=== PATIENT | female | born 1950 | race Caucasian/White ===

== ENCOUNTER 2017-03-09 13:48 | Emergency (ER) | payer MEDICARE, SELFPAY ==
[2017-03-09 14:28] VITALS: TEMP 97.5
[2017-03-09] MEDS ORDERED: methylPREDNISolone SODIUM SUC 125 MG/2 ML VIAL IM ONE (14:34)
--- NOTE | 2017-03-09 14:36 | ED.PDOC ---
History of Present Illness - General Chief Complaint: ENT Problem Stated Complaint: cold like symptoms Time Seen by Provider: 03/09/17 14:07 Source: patient, RN notes reviewed, Vital Signs reviewed Exam Limitations: no limitations - History of Present Illness Initial Comments: Patient comes in with allergy symptoms for the past 10 days. Watery eyes, nasal congestion, runny nose and mild cough. This happens about every year. She reports if she does not get it controlled then it will turn into pneumonia. She has been using OTC allergy medications w/o relief. Timing/Duration: gradual Severity: moderate EENT Location: eye (R), eye (L), nose Prearrival Treatment: over the counter meds Improving Factors: nothing Worsening Factors: nothing Associated Symptoms: cough, nasal congestion/drainage Allergies/Adverse Reactions: Allergies NO KNOWN ALLERGY Allergy (Verified 03/09/17 14:28) Home Medications: Ambulatory Orders Azithromycin [Zithromax Z-Maikol] 1 ea PO DAILY #1 pack 03/09/17 Review of Systems - Review of Systems Constitutional: States: no symptoms reported. Denies: chills, diaphoresis, fever, malaise EENTM: States: see HPI, tearing, nose congestion Respiratory: States: cough. Denies: short of breath, wheezing Cardiology: States: no symptoms reported Gastrointestinal/Abdominal: States: no symptoms reported Musculoskeletal: States: no symptoms reported Skin: States: no symptoms reported Neurological: States: headache - mild All other Systems: No Change from Baseline Past Medical History (General) - Patient Medical History Hx Seizures: No Hx Stroke: No Hx Asthma: No Hx of COPD: No Hx Cardiac Disorders: No Hx Congestive Heart Failure: No Hx Pacemaker: No Hx Hypertension: No Hx Diabetes: No Hx MRSA: No Surgical History: Hysterectomy, other - Vaccination History Hx Influenza Vaccination: No Hx Pneumococcal Vaccination: No - Social History Hx Tobacco Use: No Hx Alcohol Use: No Hx Substance Use: No Hx Substance Use Treatment: No Hx Physical Abuse: No Hx Emotional Abuse: No - Activities of Daily Living Hospice Agency (if applicable):: None Family Medical History - Family History Mother Family History: Unknown Physical Exam - Physical Exam General Appearance: Alert, Comfortable, No apparent distress, Well Developed, Well Groomed, Well Hydrated, Well Nourished Eye Exam: bilateral normal Ear Exam: bilateral ear: auricle normal, canal normal, TM normal Nasal Exam: discharge - Rhinorrhea, sinus tenderness - Mild, maxillary Throat Exam: normal mouth inspection, pharynx normal Neck: non-tender, full range of motion, supple, normal inspection Cardiovascular/Respiratory: regular rate, rhythm, no M/R/G, normal breath sounds , no respiratory distress Neurologic: alert, normal mood/affect, oriented x 3 Skin Exam: normal color, warm/dry Comments: Vital Signs 03/09/17 14:10 Temperature 97.5 F L Pulse Rate [ 88 pulse ox] Respiratory 20 Rate Blood Pressure 154/91 [left arm] O2 Sat by Pulse 95 Oximetry Progress - Progress Progress: 03/09/17 14:37 Will given Solu-Medrol 125mg IM Will send home with Rx for antibiotics to take only if symptoms worsening or not improving. Departure - Departure Clinical Impression: Allergic rhinitis due to allergen Qualifiers: Chronicity: acute Allergic rhinitis trigger: unspecified Allergic rhinitis seasonality: seasonal Qualified Code(s): J30.2 - Other seasonal allergic rhinitis Time of Disposition: 14:38 Disposition: Discharge to Home or Self Care Condition: Good Departure Forms: ED Discharge - Pt. Copy, Patient Portal Self Enrollment Instructions: DI for Allergic Rhinitis Diet: resume usual diet Activity: increase activity as tolerated Prescriptions: Azithromycin [Zithromax Z-Maikol] 1 ea PO DAILY #1 pack Home Medications: Ambulatory Orders Azithromycin [Zithromax Z-Maikol] 1 ea PO DAILY #1 pack 03/09/17 Additional Instructions: Continue allergy medications as needed.
[2017-03-09 15:25] VITALS: BP 156/90; O2SAT 94
== END 2017-03-09 15:23 | disposition home or self-care (01) ==
LOC: ER 13:48
DX: J30.2 Other seasonal allergic rhinitis (principal)

== ENCOUNTER 2017-06-30 14:03 | Emergency (ER) | payer MEDICARE ==
[2017-06-30] MEDS ORDERED: IPRATROPIUM/ALBUTEROL 3 ML VIAL NEB ONE ×2 (15:23→16:32)
--- NOTE | 2017-06-30 16:18 | RAD ---
EXAM: Chest,1 View CLINICAL INDICATION: 66-year-old female with cough and fever. TECHNIQUE: Single view, AP portable chest was obtained. COMPARISON: 10/26/2013 single view chest. FINDINGS: Stable cardiac and mediastinal silhouette. Heart size is normal. Round opacity with central lucency overlying the projection of the cardiac silhouette suggestive of hiatal hernia. Relatively low lung volumes with LEFT basilar patchy opacification finding which may be secondary to subsegmental atelectasis versus consolidation. No gross pneumothoraces or large pleural effusion. The visualized bones reveal degenerative change. IMPRESSION: 1. Relatively low lung volumes with slight basilar linear opacification on the RIGHT suggesting subsegmental atelectasis versus consolidation. Aspirate may be considered in the differential. Please correlate with patient clinical findings and follow-up for resolution. 2. Small central air-filled lucency overlying the cardiac silhouette suggestive of small hiatal hernia. Lateral chest radiograph or CT chest may be considered for confirmation. Electronically signed by: Fadia Cota MD 06/30/2017 4:17 PM [facility]
--- NOTE | 2017-06-30 16:33 | ED.PDOC ---
History of Present Illness - General Chief Complaint: Fever Stated Complaint: Fever, cough, nasal congestion Time Seen by Provider: 06/30/17 15:23 Source: patient - History of Present Illness Initial Comments: PT REPORTS TO THE ED WITH COMPLAINTS OF COUGH AND FEVER X 4 DAYS. Timing/Duration: getting worse Severity: moderate Improving Factors: nothing Worsening Factors: nothing Associated Symptoms: cough, fever/chills, loss of appetite, malaise Allergies/Adverse Reactions: Allergies NO KNOWN ALLERGY Allergy (Verified 03/09/17 14:28) Home Medications: Ambulatory Orders Azithromycin [Zithromax Z-Maikol] 1 ea PO DAILY #1 pack 03/09/17 levoFLOXacin [Levaquin] 500 mg PO DAILY 10 Days #10 tab 06/30/17 Review of Systems - Review of Systems Constitutional: States: chills, fever, malaise EENTM: States: nose congestion, throat pain Respiratory: States: cough Cardiology: Denies: chest pain, palpitations Gastrointestinal/Abdominal: Denies: abdominal pain, nausea, vomiting Past Medical History (General) - Patient Medical History Hx Seizures: No Hx Stroke: No Hx Asthma: No Hx of COPD: No Hx Cardiac Disorders: No Hx Congestive Heart Failure: No Hx Pacemaker: No Hx Hypertension: No Hx Diabetes: No Hx MRSA: No Surgical History: Hysterectomy - Vaccination History Hx Influenza Vaccination: No Hx Pneumococcal Vaccination: No - Social History Hx Tobacco Use: No Hx Alcohol Use: No Hx Substance Use: No Hx Substance Use Treatment: No Hx Physical Abuse: No Hx Emotional Abuse: No Family Medical History - Family History Mother Family History: No Known Living Status: Physical Exam - Physical Exam General Appearance: Alert, Comfortable, No apparent distress, Well Developed, Well Groomed, Well Hydrated Ears, Nose, Throat: hearing grossly normal Neck: non-tender, full range of motion, supple Respiratory: lungs clear, normal breath sounds, no respiratory distress, no accessory muscle use Cardiovascular/Chest: regular rate, rhythm, no edema, no murmur Gastrointestinal/Abdominal: non tender, soft Extremity: non-tender, normal inspection Neurologic: alert, normal mood/affect, oriented x 3 Skin Exam: normal color, warm/dry Progress - Progress Progress: 06/30/17 16:53 PT REPORTS IMPROVEMENT IN SYMPTOMS AFTER DUONEB. CXR FINDINGS DISCUSSED. - EKG/XRAY/CT XRAY: chest - LLL OPACITY PER RAD Departure - Departure Clinical Impression: Pneumonia, Fever in adult Time of Disposition: 16:54 Disposition: Discharge to Home or Self Care Condition: Good Departure Forms: ED Discharge - Pt. Copy, Patient Portal Self Enrollment Instructions: DI for Pneumonia -- Adult Referrals: [facility] [Provider Group] - 1-5 Days Prescriptions: levoFLOXacin [Levaquin] 500 mg PO DAILY 10 Days #10 tab Home Medications: Ambulatory Orders Azithromycin [Zithromax Z-Maikol] 1 ea PO DAILY #1 pack 03/09/17 levoFLOXacin [Levaquin] 500 mg PO DAILY 10 Days #10 tab 06/30/17
[2017-06-30] MEDS ORDERED: levoFLOXacin 500 MG TAB PO ONE (16:56)
[2017-06-30 18:59] VITALS: O2SAT 95
[2017-06-30 19:25] VITALS: BP 148/78; TEMP 99.9
== END 2017-06-30 16:45 | disposition home or self-care (01) ==
LOC: ER 14:03
DX: J18.9 Pneumonia, unspecified organism (principal); R50.81 Fever presenting with conditions classified elsewhere
CPT/HCPCS: 71010; 87502; 94640; J7620

== ENCOUNTER 2017-10-04 12:40 | Inpatient (IN) | payer MEDICARE ==
[2017-10-04] MEDS ORDERED: IBUPROFEN 200 MG TAB PO ONE (13:00)
[2017-10-04] MEDS ORDERED: IPRATROPIUM/ALBUTEROL 3 ML VIAL NEB ONE ×2 (13:15→13:20)
--- NOTE | 2017-10-04 13:30 | RAD ---
EXAM DESCRIPTION: Chest,2 Views CLINICAL HISTORY: 66 years Female, cough 1 week COMPARISON: June 30, 2017 TECHNIQUE: PA and lateral views FINDINGS: Cardiac silhouette and mediastinum are unchanged. Retrocardiac hiatal hernia is again seen. Infiltrate/atelectasis is again seen at the bases. Diffuse coarse lung markings, but the upper lungs are otherwise clear. Stable pleural parenchymal change right apex. IMPRESSION: No significant change compared with previous examination. See above Electronically signed by: Cuauhtemoc Smith 10/04/2017 1:29 PM CDT
[2017-10-04] MEDS ORDERED: OSELTAMIVIR 75 MG CAP PO ONE (13:39)
[2017-10-04] MEDS ORDERED: cefTRIAXone SODIUM 1 GM in SODIUM CHL 0.9% 50ML MIN-BAG+ 50 ML IVPB ONE (13:39)
[2017-10-04] MEDS ORDERED: AZITHROMYCIN IV 500 MG in SODIUM CHLORIDE 0.9% 250ML 250 ML IVPB ONE (13:39)
[2017-10-04] MEDS ORDERED: AZITHROMYCIN IV 500 MG VIAL IVPB ONE (13:45)
[2017-10-04] MEDS ORDERED: SODIUM CHLORIDE 0.9% 250ML 250 ML ONE (13:45)
--- NOTE | 2017-10-04 13:50 | ED.PDOC ---
History of Present Illness - General Chief Complaint: Respiratory Problem Stated Complaint: Productive cough x 1 week Time Seen by Provider: 10/04/17 12:58 Source: patient Exam Limitations: no limitations - History of Present Illness Initial Comments: The patient is a 66-year-old female presenting to the emergency room secondary to fever and a cough as well as shortness of breath that had been progressive over the last week. At the start of her symptoms she also had a significant runny nose and a sore throat but that has resolved. No altered mental status. No vomiting except when she coughs really hard. No syncope or near-syncope. No chest pain. The patient has a history of several pneumonias in the past. Timing/Duration: 1 week Severity: moderate Improving Factors: nothing Worsening Factors: nothing Associated Symptoms: cough, loss of appetite, shortness of breath Allergies/Adverse Reactions: Allergies NO KNOWN ALLERGY Allergy (Verified 10/04/17 12:57) Review of Systems - Review of Systems Constitutional: States: fever, malaise EENTM: States: nose congestion, throat pain Respiratory: States: cough, short of breath, wheezing Cardiology: States: no symptoms reported Gastrointestinal/Abdominal: States: no symptoms reported Genitourinary: States: no symptoms reported Musculoskeletal: States: no symptoms reported Skin: States: no symptoms reported Neurological: States: no symptoms reported Endocrine: States: no symptoms reported All other Systems: No Change from Baseline Past Medical History (General) - Patient Medical History Hx Seizures: No Hx Stroke: No Hx Asthma: No Hx of COPD: No Hx Cardiac Disorders: No Hx Congestive Heart Failure: No Hx Pacemaker: No Hx Hypertension: No Hx Diabetes: No Hx Cancer: No Hx Hepatitis C: No Hx MRSA: No Surgical History: Hysterectomy - Vaccination History Hx Tetanus, Diphtheria Vaccination: No Hx Influenza Vaccination: No Hx Pneumococcal Vaccination: No - Social History Hx Tobacco Use: No Hx Chewing Tobacco Use: No Hx Alcohol Use: No Hx Substance Use: No Hx Substance Use Treatment: No Hx Depression: No Feels Threatened In Home Enviroment: No Feels Threatened In a Relationship: No Hx Physical Abuse: No Hx Emotional Abuse: No Hx Suspected Abuse: No - Female History Patient is a Female of Child Bearing Age (10 -59 yrs old): No Patient : No Family Medical History - Family History Mother Family History: No Known Living Status: Physical Exam - Physical Exam General Appearance: Alert, Comfortable, No apparent distress Eye Exam: bilateral normal Ears, Nose, Throat: hearing grossly normal, normal ENT inspection, normal pharynx Neck: full range of motion, supple Respiratory: other - the patient does have significant crackles at the right lung base. She has mild scattered wheezing. She does have scattered coarse rhonchi as well. 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 Symptoms from last week or more consistent with a viral illness that has progressed to more of a pneumonia at this point. Blood cultures have been taken. The patient did respond somewhat positively to a breathing treatment even though she has no definite history of any reactive airway or COPD in the past. The patient is receiving a dose of Tamiflu as we cannot currently test for that here at this time. It is still prevalent in the community. She is also going to be on Rocephin and azithromycin. She has not received a dose of any steroids at this point in time. She does require oxygen as without it her oxygen saturations dropped into the low 80s. She does not appear septic at this time. Admit for management of pneumonia due to an uncertain source at this time. Chest x-ray does not appear significant change from previous chest x-rays but she does have either persistent atelectasis or infiltrates in bilateral bases. - Results/Orders Results/Orders: Laboratory Last Values Laboratory Results - last 24 hr 10/04/17 10/04/17 10/04/17 13:17 13:17 13:17 WBC 19.0 H RBC 4.43 Hgb 12.8 Hct 37.7 MCV 85.1 MCH 28.9 MCHC 34.0 RDW 13.8 Plt Count 300 MPV 8.8 Absolute Neuts (auto) 16.70 H Absolute Lymphs (auto) 1.20 Absolute Monos (auto) 1.10 H Absolute Eos (auto) 0.00 Absolute Basos (auto) 0.10 Neutrophils % 87.9 H Lymphocytes % 6.2 L Monocytes % 5.6 Eosinophils % 0.0 L Basophils % 0.3 D-Dimer, Quantitative 402 H* Sodium 133 L Potassium 4.0 Chloride 95 L Carbon Dioxide 27 Anion Gap 15.0 Calcium 9.6 Departure - Departure Clinical Impression: Pneumonia Qualifiers: Pneumonia type: due to unspecified organism Laterality: right Lung location: lower lobe of lung Qualified Code(s): J18.1 - Lobar pneumonia, unspecified organism Disposition: Admit Patient Decision To Admit - Decistion To Admit Decision to Admit Reason: Medical Nature Decision to Admit Date: 10/04/17 Decision to Admit Time: 13:53
--- NOTE | 2017-10-04 14:27 | HP ---
SUPERVISING PHYSICIAN: Severino Ludwig M.D. CHIEF COMPLAINT: Coughing and upper respiratory problems. HISTORY OF PRESENT ILLNESS: This is a 66 year-old female patient who presented to the Emergency Room secondary to a fever and coughing with upper respiratory- like symptoms times 1 week. She has also had some shortness of breath, sore throat and chest congestion. It started up in her throat and sinuses, and has since moved down to her chest. She did try some NyQuil at one time but that did not seem to help. Her sore throat resolved but her coughing and wheezing has worsened, so she came to the Emergency Room today. In the Emergency Room, her vital signs showed a temperature of 101.6 with heart rate 109, blood pressure 155/90, respiratory rate 23 breaths per minute, and O2 sats were 86% on room air. She was given supplemental oxygen. Her O2 sats came up to the low 90s. She was also given breathing treatments and some fluids. Her lab studies showed WBCs of 19,000, hemoglobin 12.8, hematocrit 37.7, neutrophils 87.9%. Sodium was slightly low at 133 with potassium 4, chloride 95, carbon dioxide 27, BUN 11, creatinine 0.66, glucose 126. Total bilirubin 1.5, serum total protein 8.8. Blood cultures were done. Influenza swab was done and was negative for flu A and B. Chest x-ray showed no significant change from previous exam, but there is an infiltrate/atelectasis seen in the bases with diffuse coarse lung markings. Upper lungs are otherwise clear. Azithromycin and Rocephin were started and I was called for hospital admission. PAST MEDICAL HISTORY: 1. Pneumonia. She has been in the hospital several times due to pneumonia. PAST SURGICAL HISTORY: 1. Hysterectomy and salpingo-oophorectomy. 2. Bladder suspension surgery. 3. Right carpal tunnel surgery. OUTPATIENT MEDICATIONS: None. ALLERGIES: CIPROFLOXACIN. FAMILY HISTORY: Unknown. SOCIAL HISTORY: The patient lives in [place]. She is . She denies any history of smoking, ETOH or illicit drug use, but she is subjected to second hand smoke. REVIEW OF SYSTEMS: GENERAL: Positive for fever and fatigue. Negative for weight changes. HEENT: Positive for sore throat, sinus symptoms. Negative for ear pain or vision changes. RESPIRATORY: Positive for coughing, wheezing or shortness of breath. CARDIAC: Negative for chest pain, palpitations or tachycardia. GASTROINTESTINAL: Negative for nausea, vomiting, diarrhea or constipation. GENITOURINARY: Negative for dysuria, hematuria or polyuria. MUSCULOSKELETAL: Negative for arthralgias or myalgias. SKIN: Negative for lesions or rashes. NEUROLOGIC: Negative for headaches, dizziness or seizures. PHYSICAL EXAMINATION: VITAL SIGNS: Temperature on admission to the . . was 101.6, it is now 98. Heart rate 106, it is now 98. Blood pressure 155/90, respiratory rate 23. O2 sat initially on admission was 86% on room air, it is now 95% on 2 liters nasal cannula. GENERAL: This is a 66 year-old female patient who is lying in her hospital bed. She is in no acute distress. HEENT: Normocephalic and atraumatic. Pupils are equal and reactive. Oropharynx is clear. Throat is slightly erythematous but no exudate. NECK: Supple without mass. CHEST: Coarse rhonchi throughout the upper airways, diminished at the bases. There is some mild expiratory wheezing in the right upper lung zazueta. There is equal rise and fall of the chest with inspiration and expiration. The patient is mildly tachypneic. CARDIOVASCULAR: Tachycardic rate, regular rhythm. ABDOMEN: Soft, nondistended, non-tender. Bowel sounds are positive. EXTREMITIES: No cyanosis, clubbing or edema. NEUROLOGIC: She is awake, alert and oriented times three. Cranial nerves II- XII are grossly intact. LABORATORY: Labs and films are as per the History of Present Illness. ASSESSMENT: 1. Sepsis due to right lower lobe pneumonia most likely community acquired. Her vital signs on admission showed temperature 101.6 with heart rate 109, respiratory rate 23, and O2 sat of 86% and 19,000 WBCs. 2. Hypoxemia that has improved with oxygen. 3. Hyperbilirubinemia. 4. Elevated blood pressure with no previous diagnosis of hypertension. 5. Significant history of pneumonia with several hospital admissions. PLAN: We will admit the patient to the hospital. We will initiate the pneumonia guidelines that include good pulmonary hygiene and nebulizer treatments. I have continued the Rocephin and azithromycin. We will get a sputum sample. I will hold on steroids for now. She may need them if her shortness of breath and wheezing worsen. Started Protonix for ulcer prophylaxis as well as Lovenox for DVT prophylaxis. Will repeat her labs tomorrow. She does not have a primary care physician, so it would be beneficial to work on establishing care with a physician, and will also monitor her bilirubin level. Otherwise we will continue to monitor the patient closely and follow as needed. Dr. Ludwig is the collaborating physician available for consultation. [facility][id number] [facility]
[2017-10-04] MEDS ORDERED: SODIUM CHLORIDE 0.9% 1000ML 1,000 ML IVS ONE (16:24)
[2017-10-04] MEDS ORDERED: ALBUTEROL SULFATE 2.5 MG/3 ML VIAL NEB PRN (16:24)
[2017-10-04] MEDS ORDERED: ENOXAPARIN SODIUM 40 MG/0.4 ML SYG SUBCU SCH (16:30)
[2017-10-04] MEDS ORDERED: cefTRIAXone SODIUM 1 GM VIAL ONE (16:35)
[2017-10-04] MEDS ORDERED: SODIUM CHL 0.9% 50ML MIN-BAG+ 50 ML IVPB ONE (16:37)
[2017-10-04] MEDS: PANTOPRAZOLE SODIUM IV 40 MG VIAL IV SCH (16:42)
[2017-10-04] MEDS: SODIUM CHLORIDE 0.9% (FLUSH) 10 ML SYG IV PRN (16:43)
[2017-10-04] MEDS: IV SET AND CAP CHANGE INJ INJ SCH (17:00)
[2017-10-04] MEDS: ACETAMINOPHEN 325 MG TAB PO PRN (18:32)
[2017-10-04] MEDS ORDERED: IPRATROPIUM/ALBUTEROL 3 ML VIAL INH SCH (20:00)
[2017-10-04] MEDS ORDERED: LEVALBUTEROL NEBS 1.25 MG/3 ML VIAL NEB ONE (20:26)
[2017-10-04] MEDS: guaiFENesin ER TAB 600 MG TAB PO SCH (20:32)
--- NOTE | 2017-10-05 06:52 | RAD ---
EXAM: PA and LATERAL CHEST RADIOGRAPHS CLINICAL INDICATION: Pneumonia. COMPARISON: Compared to yesterday's chest radiograph at 1311 hours. FINDINGS: Cardiac size and pulmonary vasculature are normal. Enlarging right basilar consolidation. New small right pleural effusion. Unchanged underlying findings of probably chronic interstitial disease. No pleural effusions or pneumothorax. No free peritoneal gas layering under the hemidiaphragms. No suspicious hilar or mediastinal lymphadenopathy. Bones are normal. IMPRESSION: Enlarging right basilar consolidation and right pleural effusion which may represent pneumonia. Otherwise unchanged chest radiographs. Electronically signed by: Cuauhtemoc Rosario MD 10/05/2017 6:50 AM CDT
[2017-10-05] MEDS: guaiFENesin ER TAB 600 MG TAB PO SCH ×2 (09:00→20:45)
[2017-10-05] MEDS: ENOXAPARIN SODIUM 40 MG/0.4 ML SYG SUBCU SCH (09:01)
[2017-10-05] MEDS ORDERED: POTASSIUM CHLORIDE 20 MEQ TAB PO ONE (09:24)
[2017-10-05] MEDS: IPRATROPIUM/ALBUTEROL 3 ML VIAL NEB SCH ×4 (09:41→19:20)
[2017-10-05] MEDS ORDERED: methylPREDNISolone SODIUM SUC 125 MG/2 ML VIAL IV ONE (10:57)
[2017-10-05] MEDS: SODIUM CHLORIDE 0.9% (FLUSH) 10 ML SYG IV PRN (11:10)
--- NOTE | 2017-10-05 12:45 | PN ---
DATE: 10-05-17 SUPERVISING PHYSICIAN: Severino Ludwig MD SUBJECTIVE: The patient is sitting up in her hospital bed. She is visiting with her family members, complains of frequent shortness of breath but feels like she has improved since yesterday. I have encouraged her to get up and ambulate with assistance and to get up in the chair. She agreed to do so. No complaints of chest pain, nausea, vomiting, diarrhea. OBJECTIVE: VITAL SIGNS. Temperature 99.5, heart rate 101, blood pressure 134/74, respiratory rate 20, 02 saturation 92% on 2.5 liters nasal cannula. RESPIRATORY : Diminished breath sounds throughout. There is a mild expiratory wheeze in the right upper lung field. The patient continues to only be able to speak in short phrases without getting slightly tachypneic. CARDIAC: Regular rate and rhythm, although at times she is slightly tachycardic. ABDOMEN: Soft, nondistended, non-tender. Bowel sounds are positive. EXTREMITIES: No cyanosis , clubbing, or edema. NEUROLOGIC: She is awake, alert and oriented x 3. LABORATORY: WBC improved of 15,700 with hemoglobin 11.1 and hematocrit 33.5. Neutrophils 86.5%. Sodium 134, potassium 3.5, chloride 99, carbon dioxide 26, BUN 7, creatinine 0.46, serum osmolality 267. Total bilirubin 0.7. Sputum culture is still pending. Preliminary urine culture shows no growth after 24 hours. Her preliminary blood cultures are negative. Chest x-ray shows enlarging right basilar consolidation and right pleural effusion which may represent pneumonia, otherwise unchanged chest radiograph. All other labs and films have been reviewed via the EMR. ASSESSMENT: 1. Sepsis due to right lower lobe pneumonia most likely community acquired. Her vital signs on admission showed temperature 101.6 with heart rate 109, respiratory rate 23, and O2 sat of 86% and 19,000 WBCs. 2. Hypoxemia that has improved with oxygen. 3. Hyperbilirubinemia that has normalized. 4. Mild hypokalemia. 5. Elevated blood pressure with no previous diagnosis of hypertension. 6. Significant history of pneumonia with several hospital admissions. PLAN: We will continue present supportive care. She will continue with her pulmonary hygiene as well as I will give her one dose of IV steroids. I have ordered an ambulation study to evaluate her oxygen status. She does not wear oxygen at home. Recheck her lab in the morning. I have given her some potassium supplement today. Again, we will need to get her in with a primary care provider. As far as her blood pressure is concerned, her blood pressure has fairly well normalized but we will need to watch that closely and we will continue to monitor closely and follow as needed. Dr. Ludwig is the collaborating physician available for consultation. [facility][id number] [facility]
[2017-10-05] MEDS ORDERED: SODIUM CHLORIDE 0.9% 250ML 250 ML ONE (15:50)
[2017-10-05] MEDS ORDERED: cefTRIAXone SODIUM 1 GM VIAL ONE (15:50)
[2017-10-05] MEDS ORDERED: SODIUM CHL 0.9% 50ML MIN-BAG+ 50 ML IVPB ONE (15:50)
[2017-10-05] MEDS ORDERED: AZITHROMYCIN IV 500 MG VIAL IVPB ONE (15:51)
[2017-10-05] MEDS ORDERED: AZITHROMYCIN IV 500 MG in SODIUM CHLORIDE 0.9% 250ML 250 ML IVPB SCH (16:00)
[2017-10-05] MEDS: cefTRIAXone SODIUM 1 GM in SODIUM CHL 0.9% 50ML MIN-BAG+ 50 ML IVPB SCH (18:02)
[2017-10-05] MEDS: PANTOPRAZOLE SODIUM IV 40 MG VIAL IV SCH (18:02)
[2017-10-06] MEDS: IPRATROPIUM/ALBUTEROL 3 ML VIAL NEB SCH ×4 (08:35→21:13)
[2017-10-06] MEDS: guaiFENesin ER TAB 600 MG TAB PO SCH ×2 (09:20→21:01)
[2017-10-06] MEDS: ENOXAPARIN SODIUM 40 MG/0.4 ML SYG SUBCU SCH (09:20)
[2017-10-06] MEDS: SODIUM CHLORIDE 0.9% (FLUSH) 10 ML SYG IV SCH ×2 (09:22→21:01)
--- NOTE | 2017-10-06 13:36 | PN ---
SUPERVISING PHYSICIAN: William Almanza MD DATE: 10/06/17 SUBJECTIVE: The patient states she feels better than she did when she came in. She is not complaining of any shortness of breath at rest. She is still using oxygen at this time, but states she got up to go to the bathroom without any problems. OBJECTIVE: VITAL SIGNS: Blood pressure 144/65. Heart rate 92. Respiratory rate 18. Temperature 97.8. Oxygen saturation 93% on 2.5 liters nasal cannula. GENERAL: Ms. Causey is a 66-year-old female who is in no active distress currently. NEUROLOGIC: Alert and oriented. LUNGS: Diminished diffusely and bilaterally. There is no active wheezing or rhonchi at this time. CARDIOVASCULAR: Regular rate and rhythm. Normal S1, S2. ABDOMEN: Soft. Positive bowel sounds. No tenderness to palpation. GENITOURINARY: Deferred. EXTREMITIES: Lower extremities with no edema. Pulses 2+. Capillary refill is less than 2 seconds. LABORATORY: White blood cell count has improved to 12.1, hemoglobin 10.8, hematocrit 33.0, platelet count 307. Sodium 137, potassium 4.3, chloride 100, CO2 29, BUN 10, creatinine 0.46, glucose 149, calcium 9.5. ASSESSMENT: 1. Sepsis secondary to right lower lobe pneumonia, community acquired. 2. Persistent hypoxemia requiring oxygen via nasal cannula. 3. Urinary tract infection with a negative culture so far. 4. Hypertension. PLAN: At this point, she is still hypoxic and is requiring oxygen. We will continue the antibiotics as well as nebulizer. She did get a dose of steroids yesterday and I will add scheduled steroids today and see if this improves. Her cultures are so far negative. We will continue the current antibiotics. She does not have a primary care physician and will need one. I have asked the nurses to help set this up so that she can followup. She will likely need some oxygen and if I am going to send her home with oxygen, she will need someone to followup with. We will get an ambulatory study on her today as well. #[id number] [facility]
[2017-10-06] MEDS ORDERED: SODIUM CHL 0.9% 50ML MIN-BAG+ 50 ML IVPB ONE (17:01)
[2017-10-06] MEDS ORDERED: cefTRIAXone SODIUM 1 GM VIAL ONE (17:02)
[2017-10-06] MEDS: PANTOPRAZOLE SODIUM TAB 40 MG PO SCH (17:06)
[2017-10-06] MEDS: cefTRIAXone SODIUM 1 GM in SODIUM CHL 0.9% 50ML MIN-BAG+ 50 ML IVPB SCH (17:06)
[2017-10-06] MEDS: AZITHROMYCIN 250 MG TAB PO SCH (17:08)
[2017-10-06] MEDS: ACETAMINOPHEN 325 MG TAB PO PRN (20:02)
[2017-10-07] MEDS: PANTOPRAZOLE SODIUM TAB 40 MG PO SCH (06:01)
--- NOTE | 2017-10-07 07:02 | RAD ---
Chest single view on 10/07/2017 CLINICAL INDICATION: Pneumonia COMPARISON: 10/05/2017 FINDINGS: Biapical pulmonary scarring is noted. There is continued right greater left basilar opacities likely representing atelectasis although cannot exclude component of pneumonia on the right. Mild chronic interstitial changes are noted. Heart is within normal limits for size. IMPRESSION: No significant change in the appearance of the chest. Electronically signed by: Sherman Kimball 10/07/2017 7:00 AM CDT
[2017-10-07] MEDS: guaiFENesin ER TAB 600 MG TAB PO SCH ×2 (08:25→20:58)
[2017-10-07] MEDS: ENOXAPARIN SODIUM 40 MG/0.4 ML SYG SUBCU SCH (08:25)
[2017-10-07] MEDS: SODIUM CHLORIDE 0.9% (FLUSH) 10 ML SYG IV SCH ×2 (08:26→20:58)
[2017-10-07] MEDS: IPRATROPIUM/ALBUTEROL 3 ML VIAL NEB SCH ×4 (08:55→20:27)
[2017-10-07] MEDS ORDERED: POTASSIUM CHLORIDE 20 MEQ TAB PO ONE (10:08)
[2017-10-07] MEDS: methylPREDNISolone SODIUM SUC 40 MG/ML VIAL IV SCH ×2 (11:02→20:59)
[2017-10-07] MEDS: SODIUM CHLORIDE 0.9% (FLUSH) 10 ML SYG IV PRN ×2 (11:02→16:46)
[2017-10-07] MEDS: ACETAMINOPHEN 325 MG TAB PO PRN (11:11)
--- NOTE | 2017-10-07 13:43 | PN ---
SUPERVISING PHYSICIAN: William Almanza MD DATE: 10/07/17 SUBJECTIVE: Ms. Causey feels good today. She states she is less short of breath , however, she is still requiring oxygen at this time. She has not had an ambulation study as of yet. OBJECTIVE: VITAL SIGNS: Blood pressure 142/69. Heart rate 90. Respiratory rate 16. Temperature 98.0. Oxygen saturation 94%. GENERAL: Ms. Causey is a 66-year-old female in no active distress currently. NEUROLOGIC: Alert and oriented. LUNGS: She is moving a little bit more air than she was yesterday, but there are some scattered rhonchi. CARDIOVASCULAR: Regular rate and rhythm. Normal S1, S2. ABDOMEN: Soft. Positive bowel sounds. GENITOURINARY: Deferred. EXTREMITIES: Lower extremities with no significant edema. Pulses 2+. Capillary refill is less than 2 seconds. RADIOLOGY: Chest x-ray this morning still shows the bibasilar haziness, but it looks to be a little bit better than yesterday. MICROBIOLOGY: Cultures are negative so far. LABORATORY: Her white count did go up to 15.5, hemoglobin 10.4, hematocrit 31.6 , platelet count2 34. However, it should be noted also that her neutrophils have gone down to 78% and she did receive a dose of steroids which may have increased her white cell count. Chemistry shows sodium 137, potassium 3.3, chloride 101, BUN 10, creatinine 0.57, glucose 98, calcium 9.0. ASSESSMENT: 1. Sepsis secondary to right lower lobe pneumonia, community acquired. 2. Persistent hypoxemia. 3. Urinary tract infection with a negative culture. 4. Hypertension. 5. Hypokalemia. PLAN: I have already ordered potassium replacement. She is still requiring oxygen due to hypoxemia. Chest x-ray really has not worsened, but white count did go up, however, I am pretty sure that the white count went up because of the steroids. We will continue to monitor her and ensure that she continues to improve. I have ordered an ambulation study to see how she does. She may require some home oxygen. We will keep her in the hospital due to these findings. So far, I do not think she has gotten a primary care physician to followup with, so she cannot leave without a followup. We will once again try to get this done today. [facility][id number] [facility]
[2017-10-07] MEDS ORDERED: SODIUM CHL 0.9% 50ML MIN-BAG+ 50 ML IVPB ONE (13:47)
[2017-10-07] MEDS ORDERED: cefTRIAXone SODIUM 1 GM VIAL ONE (13:48)
[2017-10-07] MEDS: cefTRIAXone SODIUM 1 GM in SODIUM CHL 0.9% 50ML MIN-BAG+ 50 ML IVPB SCH (16:46)
[2017-10-07] MEDS: IV SET AND CAP CHANGE INJ INJ SCH (16:47)
[2017-10-07] MEDS: AZITHROMYCIN 250 MG TAB PO SCH (16:47)
[2017-10-08] MEDS: PANTOPRAZOLE SODIUM TAB 40 MG PO SCH (06:27)
[2017-10-08] MEDS: IPRATROPIUM/ALBUTEROL 3 ML VIAL NEB SCH ×4 (08:12→20:41)
[2017-10-08] MEDS: methylPREDNISolone SODIUM SUC 40 MG/ML VIAL IV SCH ×2 (08:48→20:53)
[2017-10-08] MEDS: ENOXAPARIN SODIUM 40 MG/0.4 ML SYG SUBCU SCH (08:49)
[2017-10-08] MEDS: guaiFENesin ER TAB 600 MG TAB PO SCH ×2 (08:49→20:53)
[2017-10-08] MEDS: SODIUM CHLORIDE 0.9% (FLUSH) 10 ML SYG IV SCH ×2 (08:49→20:53)
--- NOTE | 2017-10-08 11:24 | PN ---
SUPERVISING PHYSICIAN: William Almanza MD DATE: 10/08/17 SUBJECTIVE: Ms. Causey feels pretty good today. She still has a pretty heavy cough, but is not complaining of any shortness of breath. She states she did walk the pugh once yesterday and when talking to the respiratory therapist, her O2 sat went down to about 91% at that time. OBJECTIVE: VITAL SIGNS: Blood pressure 133/67. Heart rate 78. Respiratory rate 18. Temperature 98.0. Oxygen saturation 94% on room air. GENERAL: Ms. Causey is a 66-year-old female in no severe distress currently. NEUROLOGIC: Alert and oriented. LUNGS: Diminished, but no rhonchi or wheeze currently. CARDIOVASCULAR: Regular rate and rhythm. Normal S1, S2. ABDOMEN: Soft. Positive bowel sounds. EXTREMITIES: Lower extremities with no significant edema. Pulses 2+. Capillary refill is less than 2 seconds. LABORATORY: Labs are reviewed and show white count 11.7, hemoglobin 11.6, hematocrit 34.1, platelet count 421. Sodium 135, potassium 4.4, chloride 97, CO2 28, BUN 8, creatinine 0.58, glucose 131, calcium 9.3. ASSESSMENT: 1. Sepsis secondary to right lower lobe pneumonia, community acquired, improved. 2. Persistent hypoxemia, seems to be improving regarding the fact that her saturations have not dropped below 91% and she is not requiring continuous oxygen as she was. 3. Urinary tract infection with a negative culture. 4. Hypertension. 5. Hypokalemia, resolved. PLAN: She does have improvement in her white blood cell count, so it is probably due to the steroids that she did get. She overall feels better, but still having the cough. We will watch her another 24 hours and if she remains stable overnight, she can likely go home with p.o. antibiotics as well as titrating steroid dose. She is currently only on 20 mg q.12h. of Solu-Medrol, so if she does not go home tomorrow, this can probably be changed to p.o. as well. However, I do anticipate she will go home. I have instructed the nurses to ambulate her in the hallway about 3 times today to ensure that her O2 saturation stay stable with ambulation. Also, she does not have a primary care physician, but she wants to go to [facility]. Therefore, once discharged and orders in place, we will call and make an appointment. [id number] [facility]
[2017-10-08] MEDS ORDERED: SODIUM CHL 0.9% 50ML MIN-BAG+ 50 ML IVPB ONE (16:17)
[2017-10-08] MEDS ORDERED: cefTRIAXone SODIUM 1 GM VIAL ONE (16:17)
[2017-10-08] MEDS: cefTRIAXone SODIUM 1 GM in SODIUM CHL 0.9% 50ML MIN-BAG+ 50 ML IVPB SCH (16:43)
[2017-10-08] MEDS: AZITHROMYCIN 250 MG TAB PO SCH (16:44)
[2017-10-09] MEDS: PANTOPRAZOLE SODIUM TAB 40 MG PO SCH (06:28)
[2017-10-09] MEDS: IPRATROPIUM/ALBUTEROL 3 ML VIAL NEB SCH ×3 (07:29→16:22)
[2017-10-09] MEDS: ENOXAPARIN SODIUM 40 MG/0.4 ML SYG SUBCU SCH (08:37)
[2017-10-09] MEDS: guaiFENesin ER TAB 600 MG TAB PO SCH (08:38)
[2017-10-09] MEDS: SODIUM CHLORIDE 0.9% (FLUSH) 10 ML SYG IV SCH (08:39)
[2017-10-09] MEDS: methylPREDNISolone SODIUM SUC 40 MG/ML VIAL IV SCH (08:40)
[2017-10-09 11:09] VITALS: TEMP 98.1
[2017-10-09] MEDS ORDERED: CEFDINIR 300 MG CAP PO ONE (11:22)
[2017-10-09 14:45] VITALS: BP 138/76; O2SAT 94
[2017-10-09] MEDS: cefTRIAXone SODIUM 1 GM in SODIUM CHL 0.9% 50ML MIN-BAG+ 50 ML IVPB SCH (17:25)
--- NOTE | 2017-10-10 10:03 | DS ---
SUPERVISING PHYSICIAN: William Almanza MD DISCHARGE DIAGNOSIS: 1. Sepsis secondary to right lower lobe pneumonia, community acquired, improved with treatment. 2. Persistent hypoxemia, requiring ongoing home oxygen therapy with the patient having significant drop in her O2 saturations with exertional effort. 3. Urinary tract infection with negative cultures. 4. Hypertension. 5. Hypokalemia, resolved. REASON FOR HOSPITALIZATION: Ms. Causey is a 66-year-old female patient who presented to the Emergency Room secondary to a fever and coughing with upper respiratory-like symptoms times 1 week. She had been having some shortness of breath, sore throat and chest congestion. She noted the symptoms initially started with a sore throat and sinuses and moved down to her chest. She did try some NyQuil at home, but this did not help. Her sore throat improved but her coughing and wheezing worsened, so she came to the Emergency Room for evaluation. In the Emergency Room, her vital signs showed a temperature of 101.6 with heart rate 109, blood pressure 155/90, respiratory rate 23 breaths per minute, and O2 sats were 86% on room air. She was given supplemental oxygen and breathing treatments. Her O2 sats came up to the low 90s. Her initial white count showed leukocytosis of 19,000. Influenza A and B negative. Blood cultures were drawn. Chest x-ray showed no significant change from previous exam, but there was an infiltrate/atelectasis seen in the bases with diffuse coarse lung markings. She was then started on azithromycin and Rocephin for concern for bibasilar pneumonia and admitted to the hospital in stable condition. LABORATORY: Initial white count showed leukocytosis of 19,000. It improved and at discharge was 11,700. Hemoglobin and hematocrit were stable at 11.6 and 34.1, platelet count 421,000. Differential did show a left shift and bandemia on 10/08/17, but clinically the patient had improved. Coagulation studies showed initially she had D-dimer of 401. Chemistries on 10/08/17 showed normal electrolytes with potassium 4.4, BUN 8, creatinine 0.58, calcium 9.3. Urinalysis showed 80 ketones, trace lysed blood, nitrites positive, small leukocyte esterase, RBCs 0 to 1, WBCs 5 to 10, epithelials 3 to 5, bacteria 2+, trace mucus. MICROBIOLOGY: Sputum culture showed normal valerie at 48 hours. Urine culture showed growth of 3 organisms more suggestive of poor specimen. Blood cultures were negative after 5 days. RADIOLOGY: Chest x-ray initially in the Emergency Department showed no significant change compared to previous examination indicating diffuse coarse lung markings with stable parenchymal changes in the right apex. Repeat chest x -rays were completed. Last chest x-ray on 10/07/17 per radiologic interpretation showed no significant change in the appearance of the chest. There was biapical scarring, continued right greater than left bibasilar opacities likely representing atelectasis although cannot exclude pneumonia on the right. Please see that report and x-rays for full details. HOSPITAL COURSE: Ms. Causey was admitted as noted above for treatment of pneumonia. Initially, antibiotics included Rocephin as well as initiation of Solu-Medrol. The patient did show good improvement in her symptoms and progressed well with aggressive pulmonary hygiene although she did continue to show some mild hypoxia as noted on ambulation studies. It was felt on day of discharge she was clinically stable enough to return home with oxygen arrangements as well as continued antibiotic therapy and close followup with Dr. Constantino. PLAN: Ms. Causye was discharged on 10/09/17 to have close clinical followup with Dr. Constantino at [facility] on 10/14/17 at 10 AM. She was to have home oxygen as instructed with a nasal cannula at 2 liters. She is to resume her home medications as previous to hospitalization and start new medications as instructed. She was to return to the hospital should she have any concerning symptoms. DIET AT DISCHARGE: Resume regular diet. ACTIVITY: increase as tolerated. NEW MEDICATIONS AT DISCHARGE: 1. Albuterol inhaler 1 q.4h. as needed, no refills. 2. Cefdinir 300 mg twice daily, #20. 3. Mucinex 600 mg twice daily. 4. Medrol Dosepak 4 mg daily as directed per instructions. No other medications were started. The patient was discharged. Condition was stable and improved. #[id number] [facility]
== END 2017-10-09 18:05 | disposition home or self-care (01) | DRG 871 ==
LOC: ER 12:40 → MS 14:26
PROVIDERS: ADMIT Nurse Practitioner Acute Care; ATTEND Nurse Practitioner Family
DX: A41.9 Sepsis, unspecified organism (principal); J18.9 Pneumonia, unspecified organism; J98.11 Atelectasis; N39.0 Urinary tract infection, site not specified; I10 Essential (primary) hypertension; E87.6 Hypokalemia; R09.02 Hypoxemia; Z88.1 Allergy status to other antibiotic agents; E80.6 Other disorders of bilirubin metabolism

== ENCOUNTER 2017-11-03 17:49 | Emergency (ER) | payer MEDICARE ==
[2017-11-03 18:02] VITALS: TEMP 99.3
[2017-11-03] MEDS: SODIUM CHLORIDE 0.9% 1000ML 1,000 ML IVS ONE (19:02)
--- NOTE | 2017-11-03 19:02 | RAD ---
EXAM DESCRIPTION: Abdomen Flat Upright CLINICAL HISTORY: 66 years, Female, vomiting immediately after po intake COMPARISON: None. FINDINGS: Nonobstructive bowel gas pattern. No abnormal calcifications. No acute osseous abnormality. Moderate hiatal hernia IMPRESSION: No acute abnormality. Moderate hiatal hernia. Electronically signed by: John Serrato MD 11/03/2017 7:01 PM CDT
--- NOTE | 2017-11-03 19:03 | RAD ---
EXAM DESCRIPTION: Chest,2 Views CLINICAL HISTORY:66 years Female, vomiting immediately after po intake Comparison: October 07, 2017 FINDINGS: No focal lung consolidation. Bilateral apical pleural parenchymal scarring. No pleural effusion. No pneumothorax. Cardiac and mediastinal silhouette is unremarkable. No acute osseous abnormality. Spine degenerative changes. Moderate hiatal hernia Soft tissues are unremarkable. IMPRESSION: No acute findings. No focal lung consolidation. Moderate hiatal hernia Electronically signed by: John Serrato MD 11/03/2017 7:02 PM CDT
[2017-11-03] MEDS ORDERED: ALUM & MAG HYDROX-SIMETHICONE 30 ML UD ONE (19:26)
[2017-11-03] MEDS ORDERED: LIDOCAINE HCL 2% (MOUTH-THROAT) 15 ML UD ONE (19:26)
[2017-11-03] MEDS: ALUM & MAG HYDROX-SIMETHICONE 30 ML, LIDOCAINE VISCOUS 2% 15 ML PO ONE ×2 (19:31)
[2017-11-03] MEDS: GLUCAGON INJ 1 MG VIAL IV ONE (19:32)
--- NOTE | 2017-11-03 20:33 | ED.PDOC ---
History of Present Illness - General Chief Complaint: GI Problem Stated Complaint: N/V Time Seen by Provider: 11/03/17 17:58 Source: patient Exam Limitations: no limitations - History of Present Illness Initial Comments: the patient is a 66-year-old female presenting to the emergency room secondary to vomiting for the last 8-10 hours. She reports that anything she takes comes up within less than a minute. She does not really feel nauseated. She has substernal pressure. Even when she is not eating or drinking anything she is throwing upwhite sputum. She does have a long-standing history of gastroesophageal reflux disease and takes omeprazole. She has never had an endoscopy. No fevers. No pain at baseline. No bowel obstruction symptoms prior. No syncope or near syncope. No pain with activity. She only has a substernal chest discomfort just before she throws up somephlegm. Severity: moderate Improving Factors: nothing Worsening Factors: nothing Associated Symptoms: denies symptoms Allergies/Adverse Reactions: Allergies Ciprofloxacin [From Cipro] Adverse Reaction (Mild, Verified 11/03/17 18:03) Diarrhea Home Medications: Ambulatory Orders Sucralfate Tab [Carafate Tab] 1 gm PO QID #120 tab 11/03/17 Review of Systems - Review of Systems Constitutional: States: no symptoms reported EENTM: States: no symptoms reported Respiratory: States: no symptoms reported Cardiology: States: no symptoms reported, chest pain Gastrointestinal/Abdominal: States: vomiting Genitourinary: States: no symptoms reported Musculoskeletal: States: no symptoms reported Skin: States: no symptoms reported Neurological: States: no symptoms reported Endocrine: States: no symptoms reported All other Systems: No Change from Baseline Past Medical History (General) - Patient Medical History Hx Seizures: No Hx Stroke: No Hx Asthma: No Hx of COPD: No Hx Cardiac Disorders: No Hx Congestive Heart Failure: No Hx Pacemaker: No Hx Hypertension: No Hx Diabetes: No Hx Cancer: No Hx Hepatitis C: No Hx MRSA: No Surgical History: Hysterectomy, other - Vaccination History Hx Tetanus, Diphtheria Vaccination: No Hx Influenza Vaccination: No Hx Pneumococcal Vaccination: No - Social History Hx Tobacco Use: No Hx Chewing Tobacco Use: No Hx Alcohol Use: No Hx Substance Use: No Hx Substance Use Treatment: No Hx Depression: No Hx Physical Abuse: No Hx Emotional Abuse: No Hx Suspected Abuse: No - Female History Patient : No Family Medical History - Family History Mother Family History: No Known Age (years): unknown pt was 14 when mother passed Living Status: Cause of : large intestine ruptured had gangrene Physical Exam - Physical Exam General Appearance: Alert, No apparent distress Eye Exam: bilateral normal Ears, Nose, Throat: hearing grossly normal, normal ENT inspection, normal pharynx Neck: full range of motion, supple Respiratory: lungs clear, normal breath sounds, no respiratory distress, no accessory muscle use Cardiovascular/Chest: normal peripheral pulses, regular rate, rhythm, no edema Peripheral Pulses: radial,right: 2+, radial,left: 2+, dorsalis pedis,right: 2+, dorsalis pedis,left: 2+ Gastrointestinal/Abdominal: non tender, soft Rectal Exam: deferred Back Exam: normal inspection, no CVA tenderness Extremity: normal range of motion, non-tender, normal inspection, no pedal edema , normal capillary refill 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 Symptoms resolved here after a couple of hours, after she was given a GI cocktail and some glucagon. She also received a liter of IV fluids. She needs to continue her omeprazole and she'll additionally be placed on Carafate 4 times daily for the next month. She needs to follow-up with her primary care doctor later this week and get set up for an EGD for further evaluation. I would recommend that she stick to a liquid and pured diet for the next few days. ER warnings are given for any worsening. The patient's blood pressures were moderately elevated upon arrival but have since improved. These should be followed as well as an outpatient. - Results/Orders Results/Orders: 11/03/17 19:00 PARTIAL THROMBOPLASTIN TIME Stat PROTHROMBIN TIME Stat Laboratory Results - last 24 hr 11/03/17 11/03/17 19:00 19:00 WBC 6.3 RBC 4.48 Hgb 13.3 Hct 38.7 MCV 86.3 MCH 29.7 MCHC 34.4 RDW 15.1 H Plt Count 316 MPV 7.7 Absolute Neuts (auto) 3.90 Absolute Lymphs (auto) 1.70 Absolute Monos (auto) 0.60 Absolute Eos (auto) 0.10 Absolute Basos (auto) 0.10 Neutrophils % 62.1 Lymphocytes % 26.2 Monocytes % 9.2 H Eosinophils % 1.7 Basophils % 0.8 Sodium 136 Potassium 3.6 Chloride 101 Carbon Dioxide 26 Anion Gap 12.6 BUN 8 Creatinine 0.52 L BUN/Creatinine Ratio 15.4 Random Glucose 102 Serum Osmolality 270.5 L Calcium 9.3 Total Bilirubin 0.5 AST 27 ALT 19 Alkaline Phosphatase 75 Creatine Kinase 45 CK-MB (CK-2) 1.6 CK-MB (CK-2) % Not Reportable Troponin I < 0.02 Serum Total Protein 7.8 Albumin 4.2 Globulin 3.6 H Albumin/Globulin Ratio 1.2 x-ray of the abdomen and chest shows a significant hiatal hernia but no other obvious acute issues. There is an air-fluid level in the hiatal hernia. Departure - Departure Clinical Impression: Hiatal hernia Vomiting Qualifiers: Vomiting type: unspecified Vomiting Intractability: non-intractable Nausea presence: without nausea Qualified Code(s): R11.11 - Vomiting without nausea Disposition: Discharge to Home or Self Care Condition: Fair Departure Forms: ED Discharge - Pt. Copy, Patient Portal Self Enrollment Instructions: DI for Hiatal Hernia Diet: full liquid diet - And pure Activity: increase activity as tolerated Prescriptions: Sucralfate Tab [Carafate Tab] 1 gm PO QID #120 tab Home Medications: Ambulatory Orders Sucralfate Tab [Carafate Tab] 1 gm PO QID #120 tab 11/03/17 Additional Instructions: the patient's 66-year-old female presenting to the emergency room with vomiting that is most likely due to a hiatal hernia that is getting pinched versus stenosis at the gastroesophageal junction. Symptoms resolved here after a couple of hours, after she was given a GI cocktail and some glucagon. She also received a liter of IV fluids. She needs to continue her omeprazole and she'll additionally be placed on Carafate 4 times daily for the next month. She needs to follow-up with her primary care doctor later this week and get set up for an EGD for further evaluation. I would recommend that she stick to a liquid and pured diet for the next few days. ER warnings are given for any worsening. The patient's blood pressures were moderately elevated upon arrival but have since improved. These should be followed as well as an outpatient.
[2017-11-03 20:48] VITALS: BP 165/75; O2SAT 94
== END 2017-11-03 20:49 | disposition home or self-care (01) ==
LOC: ER 17:49
DX: K44.9 Diaphragmatic hernia without obstruction or gangrene (principal); R11.10 Vomiting, unspecified
CPT/HCPCS: 71046; 74019; 80053; 82550; 82553; 84484; 85025; 85610; 85730; J1610; J7030

== ENCOUNTER 2017-11-17 12:14 | Emergency (ER) | payer MEDICARE ==
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
--- NOTE | 2017-11-17 13:13 | RAD ---
EXAM DESCRIPTION: Elbow,Right 3 Views CLINICAL HISTORY: 66 years Female, RIGHT ELBOW PAIN S/P FALL 5 DAYS AGO COMPARISON: None. FINDINGS: Three views of the right elbow show no acute fracture or malalignment. There is no right elbow joint effusion. No radiopaque foreign body or soft tissue gas. IMPRESSION: Negative exam. Electronically signed by: Bipin Sullivan MD 11/17/2017 1:12 PM CDT
[2017-11-17 13:26] VITALS: O2SAT 94
[2017-11-17 14:02] VITALS: BP 126/74; TEMP 98.2
== END 2017-11-17 13:45 | disposition home or self-care (01) ==
LOC: ER 12:14
DX: S50.01XA Contusion of right elbow, initial encounter (principal); S50.311A Abrasion of right elbow, initial encounter; V19.9XXA Pedal cyclist (driver) (passenger) injured in unspecified traffic accident, initial encounter; Y93.55 Activity, bike riding; Y92.9 Unspecified place or not applicable

== ENCOUNTER 2018-05-02 21:28 | Inpatient (IN) | payer MEDICARE ==
[2018-05-02] MEDS ORDERED: cefTRIAXone SODIUM 1 GM in SODIUM CHL 0.9% 50ML MIN-BAG+ 50 ML IVPB ONE (22:26)
--- NOTE | 2018-05-02 22:29 | ED.PDOC ---
History of Present Illness - General Chief Complaint: Respiratory Problem Stated Complaint: cough, fever Time Seen by Provider: 05/02/18 22:26 Source: patient Exam Limitations: no limitations - History of Present Illness Comments: patient comes in today with three-day history of cough, congestion, bodyaches, fever to 101, and now productive sputum. Patient has a history of pneumonia 6 months ago but states normally she is very healthy. On arrival however patient had mild hypoxia of 89% on RA. She has no history of asthma, smoking, or COPD and does not normally need oxygen. Timing/Duration: getting worse Cough Quality/Degree: productive cough Possible Cause: unknown cause Improving Factors: nothing Worsening Factors: nothing Associated Symptoms: cough, fever/chills, muscle aches, nasal congestion Respiratory Risk Factors: no cause identified Allergies/Adverse Reactions: Allergies Ciprofloxacin [From Cipro] Adverse Reaction (Mild, Verified 11/03/17 18:03) Diarrhea Home Medications: Ambulatory Orders Sucralfate Tab [Carafate Tab] 1 gm PO QID #120 tab 11/03/17 Review of Systems - Review of Systems Constitutional: States: chills, fever, malaise EENTM: States: nose congestion, throat pain Respiratory: States: cough. Denies: short of breath, wheezing Cardiology: States: no symptoms reported. Denies: chest pain, edema, palpitations Gastrointestinal/Abdominal: States: no symptoms reported. Denies: constipation , diarrhea, nausea, vomiting Genitourinary: States: no symptoms reported Past Medical History (General) - Patient Medical History Hx Seizures: No Hx Stroke: No Hx Asthma: No Hx of COPD: No Hx Cardiac Disorders: No Hx Congestive Heart Failure: No Hx Pacemaker: No Hx Hypertension: No Hx Diabetes: No Hx Cancer: No Hx Hepatitis C: No Hx MRSA: No - Vaccination History Hx Tetanus, Diphtheria Vaccination: No Hx Influenza Vaccination: No Hx Pneumococcal Vaccination: No - Social History Hx Tobacco Use: No Hx Chewing Tobacco Use: No Hx Alcohol Use: No Hx Substance Use: No Hx Substance Use Treatment: No Hx Depression: No Hx Physical Abuse: No Hx Emotional Abuse: No Hx Suspected Abuse: No - Female History Patient : No Family Medical History - Family History Mother Family History: No Known Age (years): unknown pt was 14 when mother passed Living Status: Cause of : large intestine ruptured had gangrene Physical Exam - Physical Exam General Appearance: Alert, No apparent distress Eye Exam: bilateral normal ENT Exam: hearing grossly normal, TMs normal, pharynx normal, nasal congestion, nasal drainage Neck: non-tender, full range of motion, supple, normal inspection, trachea midline Respiratory: chest non-tender, lungs clear, normal breath sounds, no respiratory distress Cardiovascular/Chest: normal peripheral pulses, regular rate, rhythm, no edema, no gallop, no JVD, no murmur Gastrointestinal/Abdominal: normal bowel sounds, non tender, soft Extremity: normal range of motion, non-tender, normal inspection Neurologic: alert, oriented x 3 Skin Exam: normal color Progress - Progress Progress: 05/02/18 23:18 discussed with percussion instrument repairer HAMMER [employer]TER Elliott Dill and secondary to hypoxemia will place in observation. - Results/Orders Results/Orders: 05/02/18 22:20 COMPLETE METABOLIC PROFILE Stat 05/02/18 22:26 cefTRIAXone SODIUM [Rocephin] 1 gm Sodium Chl 0.9% 50Ml Min-Bag+ [NS 50ml MINI -BAG+] 50 ml IVPB ONCE Laboratory Results WBC 15.8 K/mm3 (4.8-10.8) H 05/02/18 22:20 RBC 4.39 M/mm3 (4.20-5.40) 05/02/18 22:20 Hgb 12.5 gm/dL (12.0-16.0) 05/02/18 22:20 Hct 37.7 % (36.0-47.0) 05/02/18 22:20 MCV 85.8 fl (81.0-99.0) 05/02/18 22:20 MCH 28.5 pg (27.0-31.0) 05/02/18 22:20 MCHC 33.2 g/dL (33.0-37.0) 05/02/18 22:20 RDW 13.3 % (11.5-14.5) 05/02/18 22:20 Plt Count 312 K/mm3 (130-400) 05/02/18 22:20 MPV 7.6 fl (7.40-10.4) 05/02/18 22:20 Absolute Neuts (auto) 13.50 K/uL (1.8-6.8) H 05/02/18 22:20 Absolute Lymphs (auto) 1.30 K/uL (1.0-3.4) 05/02/18 22:20 Absolute Monos (auto) 1.00 K/uL (0.2-0.8) H 05/02/18 22:20 Absolute Eos (auto) 0.00 K/uL (0.0-0.4) 05/02/18 22:20 Absolute Basos (auto) 0.00 K/uL (0.0-0.1) 05/02/18 22:20 Neutrophils % 85.4 % (42.0-78.0) H 05/02/18 22:20 Lymphocytes % 8.0 % (20.0-50.0) L 05/02/18 22:20 Monocytes % 6.3 % (2.0-9.0) 05/02/18 22:20 Eosinophils % 0.0 % (1.0-5.0) L 05/02/18 22:20 Basophils % 0.3 % (0.0-2.0) 05/02/18 22:20 Patient Name: ASHWINI BUENO Gender: Female Date of : 1950 Referring Physician: CHARMAINE BLAKE Organization: [facility] Accession Number: [id number] Requested Date: May 02, 2018 22:12 Report Status: Final Requested Procedure: 1 Procedure Description: Chest,1 View Modality: CR Findings Reporting MD: Renee Quiros Fellow MD: Not available Dictation Time: Youth Agent: Not available Library Clerk Talking Books Date: EXAM DESCRIPTION: Chest,1 View CLINICAL HISTORY: 67 years Female, cough, fever, low o2 sats Comparison: 11/03/2021 FINDINGS: Single AP view of the chest Cardiomediastinal silhouette is within normal limits. No focal lung consolidation. Biapical pleural parenchymal scarring. No pleural effusion. No pneumothorax. Retrocardiac density consistent with a hiatal hernia. No acute osseous finding. IMPRESSION: 1. Stable appearance of the chest without interval acute finding. 2. Hiatal hernia. FLU A/B negative 05/02/18 23:00 BLOOD CULTURE Stat Laboratory Results WBC 15.8 K/mm3 (4.8-10.8) H 05/02/18 22:20 RBC 4.39 M/mm3 (4.20-5.40) 05/02/18 22:20 Hgb 12.5 gm/dL (12.0-16.0) 05/02/18 22:20 Hct 37.7 % (36.0-47.0) 05/02/18 22:20 MCV 85.8 fl (81.0-99.0) 05/02/18 22:20 MCH 28.5 pg (27.0-31.0) 05/02/18 22:20 MCHC 33.2 g/dL (33.0-37.0) 05/02/18 22:20 RDW 13.3 % (11.5-14.5) 05/02/18 22:20 Plt Count 312 K/mm3 (130-400) 05/02/18 22:20 MPV 7.6 fl (7.40-10.4) 05/02/18 22:20 Absolute Neuts (auto) 13.50 K/uL (1.8-6.8) H 05/02/18 22:20 Absolute Lymphs (auto) 1.30 K/uL (1.0-3.4) 05/02/18 22:20 Absolute Monos (auto) 1.00 K/uL (0.2-0.8) H 05/02/18 22:20 Absolute Eos (auto) 0.00 K/uL (0.0-0.4) 05/02/18 22:20 Absolute Basos (auto) 0.00 K/uL (0.0-0.1) 05/02/18 22:20 Neutrophils % 85.4 % (42.0-78.0) H 05/02/18 22:20 Lymphocytes % 8.0 % (20.0-50.0) L 05/02/18 22:20 Monocytes % 6.3 % (2.0-9.0) 05/02/18 22:20 Eosinophils % 0.0 % (1.0-5.0) L 05/02/18 22:20 Basophils % 0.3 % (0.0-2.0) 05/02/18 22:20 Sodium 129 mmol/L (135-145) L 05/02/18 22:20 Potassium 4.2 mmol/L (3.6-5.0) 05/02/18 22:20 Chloride 95 mmol/L (101-111) L 05/02/18 22:20 Carbon Dioxide 24 mmol/L (21-31) 05/02/18 22:20 Anion Gap 14.2 (12-18) 05/02/18 22:20 BUN 10 mg/dL (7-18) 05/02/18 22:20 Creatinine 0.75 mg/dL (0.6-1.3) 05/02/18 22:20 BUN/Creatinine Ratio 13.3 (10-20) 05/02/18 22:20 Random Glucose 135 mg/dL (70-105) H 05/02/18 22:20 Serum Osmolality 260.0 mOsm/L (275-295) L 05/02/18 22:20 Calcium 9.3 mg/dL (8.4-10.2) 05/02/18 22:20 Total Bilirubin 0.7 mg/dL (0.2-1.0) 05/02/18 22:20 AST 22 IU/L (10-42) 05/02/18 22:20 ALT 14 IU/L (10-60) 05/02/18 22:20 Alkaline Phosphatase 71 IU/L (42-121) 05/02/18 22:20 Serum Total Protein 8.1 gm/dL (6.4-8.2) 05/02/18 22:20 Albumin 4.2 g/dl (3.2-5.5) 05/02/18 22:20 Globulin 3.9 gm/dL (2.3-3.5) H 05/02/18 22:20 Albumin/Globulin Ratio 1.1 (1.1-1.9) 05/02/18 22:20 Departure - Departure Clinical Impression: Bronchitis, Hypoxemia Disposition: Admit Patient Condition: Fair Departure Forms: ED Discharge - Pt. Copy, Patient Portal Self Enrollment Home Medications: Ambulatory Orders Sucralfate Tab [Carafate Tab] 1 gm PO QID #120 tab 11/03/17
--- NOTE | 2018-05-02 22:40 | RAD ---
EXAM DESCRIPTION: Chest,1 View CLINICAL HISTORY: 67 years Female, cough, fever, low o2 sats Comparison: 11/03/2021 FINDINGS: Single AP view of the chest Cardiomediastinal silhouette is within normal limits. No focal lung consolidation. Biapical pleural parenchymal scarring. No pleural effusion. No pneumothorax. Retrocardiac density consistent with a hiatal hernia. No acute osseous finding. IMPRESSION: 1. Stable appearance of the chest without interval acute finding. 2. Hiatal hernia. Electronically signed by: Renee Quiros MD 05/02/2018 10:39 PM CDT
[2018-05-02] MEDS ORDERED: cefTRIAXone SODIUM 1 GM VIAL ONE (22:44)
[2018-05-02] MEDS ORDERED: SODIUM CHL 0.9% 50ML MIN-BAG+ 50 ML IVPB ONE (22:44)
--- NOTE | 2018-05-02 23:43 | HP ---
SUPERVISING PHYSICIAN: Severino Ludwig MD CHIEF COMPLAINT: Cough, fever, shortness of breath. HISTORY OF PRESENT ILLNESS: Ms. Causey is a 67 year-old female patient who presented to the Emergency Room last night complaining of a 3-day history of cough that is now productive with a purulent sputum, increasing congestion, body aches and fever of greater than 101. She has been previously hospitalized within the last 6 months for pneumonia. Otherwise, she does not go to the doctor and is very healthy. On arrival, the patient was noted to be mildly hypoxic on room air, 89%, requiring supplemental 02. Her laboratory studies did show a leukocytosis of 15,800 with a left shift. Chemistries showed a low sodium at 129. Otherwise, all other indices were was negative. Urinalysis showed a trace of blood, positive nitrate with mild leukoesterase and microscopic revealing 10 to 20 WBC, 3 to 5 RBC, no epithelials, 1+ bacteria. Initially on admission vital signs showed she had a temperature of 100.7 with a heart rate of 100. Respirations were 22 to 24, blood pressure 131/74. Saturation 89% on room air. Radiological studies included a chest x-ray, 2-view , showed stable appearance of the chest without any interval changes including no focal lung consolidation, notable biapical pleural parenchymal scarring and a consistent hiatal hernia per radiology interpretation. Dr. Messer requested the patient be admitted given that she was requiring supplemental 02 to maintain saturations greater than 90% at rest with a leukocytosis and fever consistent with bronchitis and concerns for developing pneumonia. The patient is now going to be admitted to the medical/surgical floor. She is in stable condition at time of admission. PAST MEDICAL HISTORY: 1. Hypertension. 2. Multiple hospitalizations for pneumonia. PAST SURGICAL HISTORY: 1. Hysterectomy and salpingo-oophorectomy. 2. Bladder suspension.. 3. Right carpal tunnel. CURRENT MEDICATIONS: No chronic medications listed. ALLERGIES: CIPROFLOXACIN. FAMILY HISTORY: Her father had emphysema and from a heart attack. Mother at a young age, unknown causes. SOCIAL HISTORY: The patient lives in [place]. She is . She lives with her daughter. She denies any history of smoking but has been exposed to secondhand smoke for numerous years in previous marriage. She denies any alcohol or illicit drug use. REVIEW OF SYSTEMS: CONSTITUTIONAL: As noted in history of present illness, fever, general malaise and body aches. No reported weight loss. HEENT: Positive for nasal congestion, sore throat but no earaches. RESPIRATORY: Positive for cough productive of purulent sputum with some mild shortness of breath at rest. No obvious wheezing. HEART: Denies any chest pain, palpitations or syncopal episodes or peripheral edema. GASTROINTESTINAL: Denies diarrhea, constipation or nausea or vomiting. GENITOURINARY: Denies dysuria, hematuria, polyuria or other urinary symptoms. MUSCULOSKELETAL: As noted in history of present illness, general malaise. NEUROLOGICAL: Denies ataxia, fevers, headaches, syncopal episodes or other neurological focal deficits. PHYSICAL EXAMINATION: VITAL SIGNS: Temperature 100.7, pulse 110, blood pressure 131/74, respirations 22 to 24, saturation 89% on room air, improving to 95% on nasal at 2 liters at rest. Admission weight 60.4 kg. GENERAL: On admission to medical/surgical floor, the patient appears without any acute distress. She does appear ill and frail. HEENT: Tympanic membranes clear bilaterally. Oropharynx pink with dry mucous membranes. No lesions noted. NECK: Non-tender, supple, full range of motion. No jugular venous distention. CHEST: Lung sounds are fairly clear throughout, just diminished towards the bases. No obvious rhonchi, rales, or wheezes. CARDIOVASCULAR: Regular rate and rhythm without appreciable murmurs, rubs, or gallops. ABDOMEN: Positive bowel sounds, non-tender, soft. EXTREMITIES: No cyanosis, clubbing, or edema. NEUROLOGIC: She is alert and oriented x3. Cranial nerves II through XII are grossly intact. Facial features are symmetrical. Extraocular movements within normal limits. There is no noted nystagmus. LABORATORY: Initial white count 15,800 with a left shift. Chemistries showed a low sodium at 139, BUN and creatinine within normal limits with a creatinine of 0.75. Blood sugar slightly elevated at 135. Liver functions showing to be all within normal limits. Urinalysis showed chemical analysis, trace blood, nitrite positive with small leukoesterase. Microscopic revealed 3 to 5 RBCs, 10 to 20 WBCs, no epithelials and 1+ bacteria. MICROBIOLOGY: Sputum culture pending. Urine culture pending. Blood culture pending. Influenza swab by PCR fo A and B was negative. RADIOLOGY: Chest x-ray on admission to the Emergency Room, 2-view chest showed a stable appearing chest without any interval acute findings. No notable focal lung consolidations. There was note of a hiatal hernia. ASSESSMENT: 1. Acute bronchitis with a leukocytosis and concerns for developing community acquired pneumonia with patient showing to be hypoxic on room air in a patient not normally dependent on 02. 2. Electrolytes imbalance to include a hyponatremia probably due to underlying bronchitis or pneumonia with the patient not being on any chronic medication. 3. Urinary tract infection likely due to gram negative rods with cultures pending and patient having a leukocytosis and fever on admission with concerns for possible sepsis. PLAN: The patient will be admitted to the medical/surgical floor for ongoing treatment of acute bronchitis in a patient showing to be 02 dependent. She will be started on antibiotics with Rocephin and azithromycin. She will have aggressive pulmonary hygiene with Duoneb treatments and albuterol treatments as needed. Will have her on DVT prophylaxis as per protocol. Will plan to replace her potassium with some IV fluids and recheck in the morning. We expect her length of stay to be at least 2 to 3 days. Prior to discharge, we will certainly need to do an ambulation study to further rule out need for home 02. In regards to the urinary tract infection, will continue treatment with Rocephin and await culture results to further target antibiotic therapy. Will anticipate hopefully discharging later tomorrow or Friday. Until she can transition to outpatient management, will continue to monitor and treat as needed. #[id number] [facility]
[2018-05-03] MEDS ORDERED: ACETAMINOPHEN 325 MG TAB PO PRN (01:18)
[2018-05-03] MEDS ORDERED: IBUPROFEN 400 MG TAB PO PRN (01:18)
[2018-05-03] MEDS ORDERED: ONDANSETRON INJ 4 MG/2 ML VIAL IV PRN (01:18)
[2018-05-03] MEDS ORDERED: ALBUTEROL SULFATE 2.5 MG/3 ML VIAL NEB PRN (01:18)
[2018-05-03] MEDS ORDERED: SODIUM CHLORIDE 0.9% (FLUSH) 10 ML SYG IV PRN (01:18)
[2018-05-03] MEDS ORDERED: IV SET AND CAP CHANGE INJ INJ SCH (01:30)
[2018-05-03] MEDS ORDERED: AZITHROMYCIN IV 500 MG VIAL IVPB ONE ×2 (01:43→19:45)
[2018-05-03] MEDS ORDERED: SODIUM CHLORIDE 0.9% 250ML 250 ML ONE ×2 (01:43→19:44)
[2018-05-03] MEDS: AZITHROMYCIN IV 500 MG in SODIUM CHLORIDE 0.9% 250ML 250 ML IVPB SCH (01:46)
[2018-05-03] MEDS: KCL 20 MEQ/NS 1,000 ML IVS PRN ×2 (02:33→14:57)
[2018-05-03] MEDS: PANTOPRAZOLE SODIUM IV 40 MG VIAL IV SCH (06:08)
[2018-05-03] MEDS ORDERED: SODIUM CHL 0.9% 50ML MIN-BAG+ 50 ML IVPB ONE ×2 (07:29→19:44)
[2018-05-03] MEDS ORDERED: cefTRIAXone SODIUM 1 GM VIAL ONE ×2 (07:29→19:44)
[2018-05-03] MEDS ORDERED: IPRATROPIUM/ALBUTEROL 3 ML VIAL INH SCH (08:00)
[2018-05-03] MEDS: cefTRIAXone SODIUM 1 GM in SODIUM CHL 0.9% 50ML MIN-BAG+ 50 ML IVPB SCH ×2 (09:32→21:51)
[2018-05-03] MEDS: IPRATROPIUM/ALBUTEROL 3 ML VIAL NEB SCH ×3 (11:51→20:21)
[2018-05-04 01:18] VITALS: BP 125/66; TEMP 99
[2018-05-04] MEDS: AZITHROMYCIN IV 500 MG in SODIUM CHLORIDE 0.9% 250ML 250 ML IVPB SCH (01:27)
[2018-05-04 05:50] VITALS: O2SAT 94
[2018-05-04] MEDS: PANTOPRAZOLE SODIUM IV 40 MG VIAL IV SCH (06:21)
[2018-05-04] MEDS: KCL 20 MEQ/NS 1,000 ML IVS PRN (06:22)
[2018-05-04] MEDS ORDERED: MAGNESIUM SULFATE PREMIX 2GM 50 ML IVPB ONE (06:39)
[2018-05-04] MEDS ORDERED: MIDAZOLAM INJ 5 MG/5 ML VIAL ONE (07:00)
[2018-05-04] MEDS ORDERED: AMIODARONE HCL 150 MG/3 ML VIAL IVPB ONE (07:00)
[2018-05-04] MEDS ORDERED: VECURONIUM BROMIDE 10 MG VIAL IV ONE (07:00)
[2018-05-04] MEDS ORDERED: EPINEPHrine INJ 0.1 MG/ML 10 ML SYG ONE (07:00)
[2018-05-04] MEDS ORDERED: WATER FOR INJ 10 ML VIAL INJ ONE (07:00)
[2018-05-04] MEDS ORDERED: SODIUM CHLORIDE 0.9% 1,000 ML BAG ONE (07:00)
[2018-05-04] MEDS ORDERED: CALCIUM GLUCONATE INJ 1 GM/10 ML VIAL ONE (07:00)
[2018-05-04] MEDS ORDERED: SODIUM BICARBONATE SYRINGE 50 MEQ/50 ML SYG IV ONE (07:00)
[2018-05-04] MEDS ORDERED: ETOMIDATE INJECTION 2 MG/ML 20ML VIAL IV ONE (07:00)
[2018-05-04] MEDS ORDERED: HEPARIN PREMIX 500 ML ONE (07:01)
[2018-05-04] MEDS: IPRATROPIUM/ALBUTEROL 3 ML VIAL NEB SCH (08:13)
--- NOTE | 2018-05-05 11:42 | DS ---
SUPERVISING PHYSICIAN: William Almanza MD ADMISSION DIAGNOSIS: 1. Acute bronchitis with a leukocytosis concerning for developing community acquired pneumonia with patient being hypoxic on room air in a patient not normally dependent on 02. 2. Electrolyte imbalance to include a hyponatremia, probably due to underlying bronchitis or pneumonia with the patient not being on any chronic medications. 3. Urinary tract infection likely, due to gram negative rods with cultures pending and patient having leukocytosis and fever on admission with initial concerns for sepsis. DISCHARGE DIAGNOSIS: 1. Cardiopulmonary arrest probably due to acute myocardial infarction. 2. Acute bronchitis with community acquired pneumonia. 3. Urinary tract infection with cultures pending. REASON FOR HOSPITALIZATION: Ms. Causey is a 67-year-old female patient who initially presented to the Emergency Room on 05/02/18 and was admitted to the Floor on . She had complained of a 3-day history of cough that had become productive with a purulent sputum, increasing congestion, body aches and fever of greater than 101.0. She had been previously hospitalized within the last 6 months for pneumonia. Otherwise, she had not gone to the doctor and was very healthy. On arrival, the patient was noted to be mildly hypoxic on room air, 89%, requiring supplemental 02. Her initial laboratory studies did show a leukocytosis of 15,800 with a left shift. Chemistries showed a low sodium at 129. All other chemistries were within normal limits. Urinalysis showed positive nitrites, mild leukocyte esterase and microscopic revealing 10 to 20 WBC, 3 to 5 RBC, no epithelials, 1+ bacteria. Initially on admission, vital signs showed temperature of 100.7 with a heart rate of 100. Respirations were 22 to 24, blood pressure 131/74. Saturation 89% on room air. Chest x-ray, 2- view, per radiologic interpretation showed stable appearance of the chest without any interval changes including no focal lung consolidation, notable biapical pleural parenchymal scarring and consistent hiatal hernia per radiology interpretation. Dr. Messer requested the patient be admitted given that she was requiring supplemental 02 to maintain saturations greater than 90% at rest with a leukocytosis and fever consistent with bronchitis and concerns for developing community acquired pneumonia. The patient was admitted to the medical/surgical floor in stable condition. LABORATORY: Initial white count was 15,800. On morning of discharge, it was 14 ,800. Hemoglobin and hematocrit were stable at 10.4 and 31.6, respectively, with platelet count 261,000. Differential did show a left shift. Her blood gas analysis during cardiopulmonary arrest showed pH of 7.28 with PCO2 38, PO2 84, bicarb 16.9. She was satting 95% on room air. Chemistries initially showed sodium on admission 129. On the morning of discharge, sodium was 130. Potassium was normal at 3.7, BUN 7, creatinine 0.7, glucose 272, lactic acid elevated at 4.4, calcium 10.1, magnesium normal at 2.2. AST and ALT showed elevation of 287 and 244 with CK-MB 33.8, CPK 122, troponin 1.64. Urinalysis on admission showed a trace of blood, positive nitrites and small leukocyte esterase on dipstick with microscopic showing 3 to 5 RBCs, 10 to 20 WBCs, 1+ bacterial and no epithelials. MICROBIOLOGY: She had a sputum culture and urine culture, both pending at time of . Blood cultures are remaining negative at 48 hours. Initially on admission, she had a flu swab for A and B by PCR that was negative. RADIOLOGY: Chest x-ray on admission per radiologic interpretation showed stable appearance of chest without interval acute findings and a hiatal hernia. HOSPITAL COURSE: Ms. Causey was admitted on 05/03/18 through the Emergency Room for mild hypoxia with bronchitis and concerns for community acquired pneumonia. She was also noted to have a urinary tract infection and had initial concerns for sepsis, but the patient showed to be stable. She was given IV fluids initially in the Emergency Room and started on Rocephin and azithromycin and given breathing treatments. On admission to the Medical/Surgical Floor, the patient was stable. She continued with aggressive bronchial hygiene and parenteral antibiotics with Rocephin and azithromycin. She was showing improvement with regards to the bronchitis and cultures were pending. On the morning of 05/04/18, MUFFLER TENDER making 6:30 rounds found the patient unconscious and a Code was called. The patient was found to be without a pulse. CPR was initiated and continued and ACLS protocols were followed. Please refer to the Code sheet for full details. The patient actually had a return of spontaneous circulation and was in the process of being stabilized for transport and had been accepted to [facility] [place], but, once again, jerry'd down and went into ventricular fibrillation. ACLS protocols were reinitiated. She had multiple rounds of epinephrine and amiodarone, bicarb, but unfortunately was unable to have return of spontaneous circulation. She had been intubated with no complications and was actually showing an end tidal between 38 and 40 during CPR, but remained pulseless without CPR. The family was presently shortly after the second initiation of CPR and after aggressive management with ACLS protocols, the family requested that all efforts be stopped. At that point , CPR was halted and the patient was pronounced. Please see final Code Blue sheets for full details of drugs, doses, times. Laboratory studies during the Code showed she had an elevated troponin as well as EKG during code showed ST elevation in leads 2, 3, AVF as well as ST depression in V leads. The patient had no complaints of chest pains throughout the hospitalization and, in fact, on the morning of the Code, prior to, she had reported to the respiratory therapist that she was actually breathing better and feeling much better and had no reported chest pains. PLAN: The patient was pronounced as per Code sheet by Dr. Lauren, emergency room physician, after extensive resuscitation efforts utilizing ACLS protocols. The patient's family was present at time of . The patient's remains were escorted to the home of the family's choice, which was [facility]. The patient had no actual primary care provider as she had been seen in the [facility] off and on over the last year. Dr. Иван Ludwig was present during the Code and Dr. Almanza was notified of the patient's expiration. #[id number] [facility]
== END 2018-05-04 09:25 | disposition expired | DRG 194 ==
LOC: ER 21:28 → MS 23:42 → OBSVTOIN 23:42
PROVIDERS: ADMIT Nurse Practitioner Family; ATTEND Nurse Practitioner Family
DX: J18.9 Pneumonia, unspecified organism (principal); E87.1 Hypo-osmolality and hyponatremia; R09.02 Hypoxemia; I10 Essential (primary) hypertension; Z88.1 Allergy status to other antibiotic agents; J20.9 Acute bronchitis, unspecified; I46.9 Cardiac arrest, cause unspecified